=== PATIENT | female | born 1960 | race Caucasian/White ===

== ENCOUNTER 2023-02-23 17:56 | Emergency (ER) | payer BC ==
[~2023-02-23] VITALS: Ht 170.2 cm; Wt 52.2 kg
[2023-02-23] MEDS ORDERED: ONDANSETRON 4 MG/2 ML VIAL ONE (18:12)
[2023-02-23] MEDS ORDERED: ONDANSETRON 4 MG/2 ML VIAL IV ONE (18:15)
[2023-02-23] MEDS ORDERED: IV NORMAL SALINE 1000 ML BAG IV ONE (18:15)
[2023-02-23 18:28] LABS: MEAN CORPUSCULAR HEMOGLOBIN 31.4 uug (24.7-32.8); MEAN CORPUSCULAR VOLUME 92.8 fL (75.5-95.3); PLATELET COUNT (AUTO) 216 K/uL (179-408)
--- NOTE | 2023-02-23 18:34 | NUR ---
Melody-anal care done. Patient had 2 large loose brown with red-colored materials in the stool, MD notified. Patient denies abdominal cramping at the moment.
[2023-02-23 18:36] LABS: CARBON DIOXIDE 27 mmol/L (21-32); CHLORIDE 100 mmol/L (98-107); CREATININE 0.9 mg/dL (0.6-1.3); GLUCOSE 145 mg/dL (74-106); POTASSIUM 4.1 mmol/L (3.5-5.1); UREA NITROGEN, BLOOD 14 mg/dL (7-18)
[2023-02-23 18:40] LABS: NEUTROPHILS % (MANUAL) 0 % (42-75)
[2023-02-23 18:44] LABS: ALANINE AMINOTRANSFERASE 30 U/L (14-59); ALKALINE PHOSPHATASE 98 U/L (50-136); ASPARTATE AMINOTRANSFERASE 27 U/L (15-37); BILIRUBIN,DIRECT 0.1 mg/dL (0.0-0.2); BILIRUBIN,TOTAL 0.5 mg/dL (0.2-1.0); LIPASE 98 U/L (73-393); TOTAL PROTEIN, SERUM 7.2 g/dL (6.4-8.2)
[2023-02-23] MEDS ORDERED: SWABABLE VALVE TRANSFER SET EA MC ONE (18:49)
[2023-02-23] MEDS ORDERED: IOHEXOL 300MG/ML 100 ML INFUS..BTL ONE (18:49)
[2023-02-23] MEDS ORDERED: IV NORMAL SALINE 250 ML IV ONE (18:49)
[2023-02-23] MEDS ORDERED: LEVO75TA7 PO (18:50)
[2023-02-23] MEDS ORDERED: METH10TA4 PO (18:50)
[2023-02-23] MEDS ORDERED: HYDR50TA61 PO (18:50)
[2023-02-23] MEDS ORDERED: LISI40TA13 PO (18:50)
--- NOTE | 2023-02-23 18:51 | NUR ---
4th bowel movement of loose stools seen. Melody-anal care done. Dr Schuster notified re: intermittent severe abdominal cramping.
[2023-02-23] MEDS ORDERED: HYDROMORPHONE 1 MG/1 ML DISP.SYRIN ONE (18:53)
[2023-02-23] MEDS ORDERED: HYDROMORPHONE 1 MG/1 ML DISP.SYRIN IV ONE (19:00)
--- NOTE | 2023-02-23 19:02 | NUR ---
still for CT scan & urine specimen, endorsed to KHANH Calhoun
--- NOTE | 2023-02-23 19:20 | NUR ---
Pt back from CT.
[2023-02-23] MEDS ORDERED: IV NS 1000 ML 1,000 ML IV ONE ×2 (19:30→22:00)
[2023-02-23] MEDS ORDERED: PROCHLORPERAZINE EDISYLATE 10 MG/2 ML VIAL ONE (19:32)
[2023-02-23] MEDS ORDERED: PROCHLORPERAZINE EDISYLATE 10 MG/2 ML VIAL IV ONE (19:45)
[2023-02-23 20:07] LABS: *BILIRUBIN,URIN NEGATIVE (NEGATIVE); *BLOOD, URINE NEGATIVE (NEGATIVE); *CLARITY,URINE CLEAR (CLEAR); *COLOR,URINE YELLOW (YELLOW); *KETONES,URINE TRACE (NEGATIVE); *UROBILINOGEN,URINE 0.2 E.U./dl (NORMAL); LEUKOCYTE ESTERASE ,URINE NEGATIVE (NEGATIVE); NITRITE, URINE NEGATIVE (NEGATIVE); PH,URINE 7.5 (5.0-8.0); UGLUCOSE NEGATIVE (NEGATIVE)
[2023-02-23] MEDS ORDERED: DIPH1TAB PO (22:21)
[2023-02-23] MEDS ORDERED: PROC-11 PO (22:21)
--- NOTE | 2023-02-23 22:36 | NUR ---
Patient discharged to home in stable condition. Written and verbal after care instructions given. Patient verbalizes understanding of instructions. Stressed follow up or return to ER for worsening s/s. Patient out of ER with steady gait, no acute signs of distress, VSS, all belongings taken, IV site discontinued, provided with copies of lab and CT results.
[2023-02-23 22:38] VITALS: BP 113/76
== END 2023-02-23 22:38 | disposition home or self-care (01) ==
LOC: ER 18:21
DX: R10.31 Right lower quadrant pain (principal); R10.32 Left lower quadrant pain; R55 Syncope and collapse; E03.9 Hypothyroidism, unspecified; I10 Essential (primary) hypertension; R07.89 Other chest pain; Z88.0 Allergy status to penicillin
CPT/HCPCS: 99285; 74177; 96374; 71045; 96361; 96375; 80076; 80048; 81003; 83690; 85025; 84484; 36415; 93005; 83605 ×2; 85007; J2405; Q9967; J0780; J1170; J7040 ×3; 70030-TC; A4663